=== PATIENT | female | born 1950 | race Caucasian/White ===

== ENCOUNTER → 2020-11-11 | Outpatient (CLI) | payer MEDICARE ==
[~2020-11-11] MED LIST: CHOL200074 PO; CINN500C2 PO; ESTR42.58 VG; MULT-167 PO; NITR100C57 PO; SIMV40TA20 PO; VITA1CAP PO
== END | disposition home or self-care (01) ==
LOC: STAR 15:20
PROVIDERS: ATTEND Obstetrics & Gynecology Female Pelvic Medicine and Reconstructive Surgery
DX: Z01.818 Encounter for other preprocedural examination (principal); R10.2 Pelvic and perineal pain; N81.2 Incomplete uterovaginal prolapse; N39.3 Stress incontinence (female) (male); Z20.822 Contact with and (suspected) exposure to COVID-19
CPT/HCPCS: 93005; U0003

== ENCOUNTER 2020-11-17 09:31 | Day surgery (SDC) | payer MEDICARE ==
[~2020-11-17] VITALS: Ht 165.1 cm; Wt 22.1 kg
[2020-11-17 09:59] VITALS: BP 158/90
[2020-11-17] MEDS ORDERED: CHLORHEXIDINE 15 ML UDC PO ONE (10:00)
[2020-11-17] MEDS ORDERED: LACTATED RINGERS 1,000 ML IV SCH (10:00)
[2020-11-17] MEDS ORDERED: CHLORHEXIDINE 15 ML UDC ONE (10:01)
[2020-11-17] MEDS ORDERED: FENTANYL PF 250 MCG/5ML ONE (10:21)
[2020-11-17] MEDS ORDERED: CEFAZOLIN 1,000 MG ONE (10:22)
[2020-11-17] MEDS ORDERED: NEOSTIGMINE 1 MG/ML, 10ML ONE (10:22)
[2020-11-17] MEDS ORDERED: GLYCOPYRROLATE 0.2MG/1ML, 5ML ONE (10:22)
[2020-11-17] MEDS ORDERED: ROCURONIUM 10MG/ML,5ML ONE (10:22)
[2020-11-17] MEDS ORDERED: PROPOFOL 10 MG/ML, 20ML ONE (10:22)
[2020-11-17] MEDS ORDERED: ONDANSETRON 2MG/ML, 2ML ONE (10:22)
[2020-11-17] MEDS ORDERED: MIDAZOLAM 1 MG/ML, 2ML ONE (11:59)
[2020-11-17] MEDS ORDERED: hydrALAzine 20 MG/ML, 1ML IV PRN (12:00)
[2020-11-17] MEDS ORDERED: HALOPERIDOL 5 MG/ML IV PRN (12:00)
[2020-11-17] MEDS ORDERED: PROMETHAZINE 25 MG/ML, 1ML IVPush PRN (12:00)
[2020-11-17] MEDS ORDERED: MEPERIDINE/PF 25MG/0.5ML IVPush PRN (12:00)
[2020-11-17] MEDS ORDERED: morphine SULFATE 10 MG/ML, 1ML IVPush PRN (12:00)
[2020-11-17] MEDS ORDERED: LABETALOL 5MG/ML, 20ML IV PRN (12:00)
[2020-11-17] MEDS ORDERED: ACETAMINOPHEN 325 MG TABLET PO PRN (12:00)
[2020-11-17] MEDS ORDERED: OXYcodone 5 MG/5 ML ORAL.SOL UDC PO PRN (12:00)
[2020-11-17] MEDS ORDERED: HYDROmorphone 1 MG/ML, 1ML INJ IVPush PRN (12:00)
[2020-11-17] MEDS ORDERED: FUROSEMIDE 20 MG/2 ML ONE (12:10)
[2020-11-17] MEDS ORDERED: DEXAMETHASONE 4 MG/ML, 1ML ONE (12:10)
[2020-11-17] MEDS ORDERED: PHENYLEPHRINE 10 MG/ML ONE (12:10)
[2020-11-17] MEDS ORDERED: BUPIVACAINE/PF-EPI 0.25% 1:200K INFIL ONE (12:48)
[2020-11-17] MEDS ORDERED: KETOROLAC 30 MG/1 ML ONE (13:33)
[2020-11-17] MEDS ORDERED: FENTANYL PF 100 MCG/2ML ONE (14:27)
[2020-11-17] MEDS ORDERED: OXYcodone 5 MG/5 ML ORAL.SOL UDC ONE (14:28)
[2020-11-17] MEDS: FENTANYL PF 100 MCG/2ML IV PRN ×2 (14:29→14:35)
[2020-11-17] MEDS ORDERED: ACETAMINOPHEN 650 MG/20.3 ML UDC ONE (14:33)
== END 2020-11-17 16:00 | disposition home or self-care (01) ==
LOC: OUT 09:31
PROVIDERS: ATTEND Obstetrics & Gynecology Female Pelvic Medicine and Reconstructive Surgery
DX: N81.2 Incomplete uterovaginal prolapse (principal); N39.46 Mixed incontinence; N72 Inflammatory disease of cervix uteri; N88.8 Other specified noninflammatory disorders of cervix uteri; N94.89 Other specified conditions associated with female genital organs and menstrual cycle; E78.5 Hyperlipidemia, unspecified; Z79.891 Long term (current) use of opiate analgesic; Z79.899 Other long term (current) drug therapy; Z87.891 Personal history of nicotine dependence
CPT/HCPCS: 57265; 57282; 57288; 58552; 88307; C1771; J0690; J1885; J2250; J2405; J2704; J2710; J3010; J1100; J1940; J2370